=== PATIENT | female | born 1940 | race Caucasian/White ===

== ENCOUNTER 2017-11-16 14:10 | Inpatient (IN) | payer MEDICARE, OTHER ==
[~2017-11-16] VITALS: Ht 160 cm; Wt 43.5 kg
[~2017-11-16 14:10] MED LIST: ASPIR 8181 MG PO; AZITHROMYCIN500 MG PO; BISACODYL5 MG PO; BROVANA15 MCG/2 M INH; CITALOPRAM HBR10 MG PO; DIAZEPAM5 MG PO; DOCUSATE SODIU100 MG PO; FENTANYL1 EAC1 TD; FENTANYL1 EAC1 TOP; FENTANYL1 EACH TOP; FLOVENT HFA12 G1 INH; HYDROCODON-ACE1 EA11; HYDROCODON-ACE1 EA12 PO; LEVALBUTER1.25 MG/0. INH; LIDOCAINE700 MG TOP; MELOXICAM7.5 MG PO; NAPROXEN500 MG PO; NASONEX17 GM; PROAIR HFA INH8.5 GM INH; ZOLPIDEM TARTRAT5 MG PO
[2017-11-16] MEDS ORDERED: SODIUM CHLORIDE 0.9% 500ML 500 ML IV STA (14:19)
[2017-11-16] MEDS ORDERED: ENOXAPARIN INJ 80 MG/0.8 ML SYR SC STA (14:19)
[2017-11-16] MEDS ORDERED: ONDANSETRON HCL INJ 2 MG/ML VIAL IV PRN ×2 (14:30→16:00)
[2017-11-16] MEDS ORDERED: ASPIRIN 81 MG CHEW TAB PO ONE (14:30)
[2017-11-16] MEDS ORDERED: PROMETHAZINE 12.5MG/ NACL 0.9% 12.5 MG/50 ML BAG IV PRN (14:30)
[2017-11-16] MEDS ORDERED: NITROGLYCERIN 2% OINT 1 GM PKT TOP ONE (14:30)
[2017-11-16] MEDS ORDERED: FAMOTIDINE 20 MG/2 ML VIAL IV ONE (14:30)
[2017-11-16] MEDS ORDERED: LEVALBUTEROL HCL SOLN NEBU 1.25 MG/3 ML NEB INH ONE (14:45)
[2017-11-16] MEDS ORDERED: IPRATROPIUM BROMIDE 0.02% 2.5 ML NEB NEB ONE (14:45)
[2017-11-16 15:18] LABS: BASOPHILS # (AUTO) 0.1 (0.0-0.1); BASOPHILS % 0.3 % (0.0-1.0); EOSINOPHILS # (AUTO) 0.1 (0.0-0.4); EOSINOPHILS % 0.3 % (0.0-6.0); HEMATOCRIT 36.8 % (34.2-44.1); HEMOGLOBIN 12.1 g/dL (12.0-16.0); LYMPHOCYTES # (AUTO) 1.1 (1.0-3.2); LYMPHOCYTES % 3.6 % (18.0-39.1); MEAN CORPUSCULAR HEMOGLOBIN 29.4 pg (28-32); MEAN CORPUSCULAR HGB CONC 32.9 g/dL (31-35); MEAN CORPUSCULAR VOLUME 89.5 fL (81-99); MONOCYTES # (AUTO) 2.4 (0.2-0.8); MONOCYTES % 8.3 % (4.4-11.3); NEUTROPHILS # (AUTO) 25.4 (2.1-6.9); PLATELET COUNT 364 x10e3/uL (140-360); RED BLOOD COUNT 4.11 x10e6/uL (3.6-5.1); RED CELL DISTRIBUTION WIDTH 13.8 % (11.7-14.4)
[2017-11-16] MEDS: ALBUTEROL SULF 0.083% NEB SOLN 3 ML NEB NEB SCH ×3 (15:35→23:00)
[2017-11-16 15:36] LABS: ALANINE AMINOTRANSFERASE 17 IU/L (0-55); ALBUMIN 4.1 g/dL (3.5-5.0); ALKALINE PHOSPHATASE 91 IU/L (40-150); ANION GAP 19.6 mmol/L (8-16); BLOOD UREA NITROGEN 13 mg/dL (7-26); BUN/CREATININE RATIO 19 (6-25); CALCIUM 10.4 mg/dL (8.4-10.2); CARBON DIOXIDE 28 mmol/L (22-29); CHLORIDE 97 mmol/L (98-107); CREATINE KINASE 52 IU/L (29-168); CREATININE, SERUM 0.69 mg/dL (0.57-1.11); EST GLOMERULAR FILTRATION RATE > 60 ML/MIN (60-); GLUCOSE 102 mg/dL (74-118); MAGNESIUM 1.9 MG/DL (1.3-2.1); POTASSIUM 4.6 mmol/L (3.5-5.1); SODIUM 140 mmol/L (136-145)
--- NOTE | 2017-11-16 15:45 | Diagnostic Imaging Report ---
Examination: Single AP view of the chest. COMPARISON: Chest 2 views 04/09/2016 INDICATION: Generalized weakness, chest pain IMPRESSION: 1. Lines and Tubes: None 2. Lungs are hyperinflated. Stable mild prominence of the interstitial markings, likely reflecting chronic interstitial changes. Stable linear opacities in the left midlung consistent with scarring. Mild left basal atelectatic changes. No consolidation or effusion. 3. Cardiomediastinal silhouette is normal. Pulmonary vasculature is normal. 4. No acute bony abnormalities. Signed by: Dr. Billy Geller M.D. on 11/16/2017 3:41 PM
[2017-11-16] MEDS ORDERED: LACTATED RINGER'S 1,000 ML IV SCH (15:52)
[2017-11-16] MEDS ORDERED: DIPHENHYDRAMINE HCL 25 MG CAP PO PRN (16:00)
[2017-11-16] MEDS ORDERED: ENALAPRILAT IV INJ 1.25 MG/ML VIAL IV PRN (16:00)
[2017-11-16] MEDS ORDERED: ZOLPIDEM TARTRATE 5 MG TAB PO PRN ×2 (16:00→20:30)
[2017-11-16] MEDS ORDERED: IBUPROFEN 200 MG TAB PO PRN (16:00)
[2017-11-16] MEDS ORDERED: CLONIDINE HCL 0.1 MG TAB PO PRN (16:00)
[2017-11-16] MEDS ORDERED: LACTULOSE SYRUP 20 GM/30 ML UDC PO PRN (16:00)
[2017-11-16] MEDS ORDERED: IBUPROFEN 400 MG TAB PO PRN (16:30)
[2017-11-16] MEDS: FAMOTIDINE 20 MG TAB PO SCH (16:41)
[2017-11-16] MEDS: ENOXAPARIN SOD INJ 40 MG/0.4 ML SYR SC SCH (16:42)
[2017-11-16] MEDS: CEFTRIAXONE SOD 1 GM VIAL IV SCH (17:00)
[2017-11-16 17:01] LABS: CLARITY,URINE SL CLOUDY (CLEAR); COLOR,URINE YELLOW (YELLOW); KETONES,URINE 2+ (NEGATIVE); LEUKOCYTE ESTERASE ,URINE NEGATIVE (NEGATIVE); NITRITE,URINE NEGATIVE (NEGATIVE); PROTEIN,URINE DIPSTICK NEGATIVE (NEGATIVE); URINE UROBILINOGEN 0.2 mg/dL (0.2 - 1)
[2017-11-16 17:02] LABS: BACTERIA,URINE FEW /HPF; BILIRUBIN,URINE 1+ (NEGATIVE); EPITHELIAL CELLS,URINE FEW /LPF; MUCUS,URINE MANY (RARE); RBC,URINE 21-50 /HPF (0-5); TRANSITIONAL EPI CELLS,URINE FEW
[2017-11-16] MEDS: AZITHROMYCIN 500MG/NS 250 ML 250 ML IV SCH (17:23)
[2017-11-16] MEDS: SODIUM CHLORIDE 0.9% 1000ML 1,000 ML IV SCH (18:07)
[2017-11-16] MEDS: IBUPROFEN 400 MG TAB PO PRN (18:08)
[2017-11-16 18:15] LABS: LYMPHOCYTES % (MANUAL) 2 % (19-48); MONOCYTES % (MANUAL) 4 % (3.4-9.0); NEUTROPHILS % (MANUAL) 94 % (40-74)
[2017-11-16 18:16] LABS: PLATELET ESTIMATE ADEQUATE; PLATELET MORPHOLOGY COMMENT NORMAL; RBC MORPHOLOGY COMMENT NORMAL
[2017-11-16 18:17] VITALS: BP 120/60
[2017-11-16] MEDS: IPRATROPIUM BROMIDE 0.02% 2.5 ML NEB NEB SCH ×2 (19:55→23:56)
[2017-11-16 20:10] VITALS: BP 154/71
[2017-11-16] MEDS: CITALOPRAM HYDROBROMIDE 20 MG TAB PO SCH (20:32)
[2017-11-16 20:38] VITALS: BP 154/71
[2017-11-16] MEDS: HYDROCODONE/APAP 7.5MG-325MG 1 EA TAB PO PRN (21:03)
[2017-11-17 00:20] VITALS: BP 150/70
[2017-11-17] MEDS: ALBUTEROL SULF 0.083% NEB SOLN 3 ML NEB NEB SCH ×7 (03:00→23:00)
[2017-11-17] MEDS: HYDROCODONE/APAP 7.5MG-325MG 1 EA TAB PO PRN ×3 (04:25→21:30)
[2017-11-17] MEDS: IPRATROPIUM BROMIDE 0.02% 2.5 ML NEB NEB SCH ×3 (04:30→18:45)
[2017-11-17 04:51] LABS: CREATINE KINASE MB 4.1 ng/mL (0-5.0)
[2017-11-17] MEDS: CEFTRIAXONE SOD 1 GM VIAL IV SCH ×2 (05:09→16:00)
[2017-11-17] MEDS: SODIUM CHLORIDE 0.9% 1000ML 1,000 ML IV SCH (05:09)
[2017-11-17] MEDS: ACETAMINOPHEN 325 MG TAB PO PRN ×2 (06:00→08:36)
[2017-11-17] MEDS ORDERED: FENTANYL 50 MCG/HR PATCH TD SCH ×2 (07:15→09:00)
[2017-11-17] MEDS: FAMOTIDINE 20 MG TAB PO SCH ×2 (07:30→16:29)
[2017-11-17 08:00] VITALS: BP 175/71
[2017-11-17] MEDS: IBUPROFEN 400 MG TAB PO PRN (08:37)
[2017-11-17] MEDS: ARFORMOTEROL TARTRATE INH SCH ×2 (09:00→19:00)
[2017-11-17] MEDS ORDERED: NON-FORMULARY MEDICATION (Citalopram Hydrobromide (Citalopram Hbr) 10 MG) PO SCH (09:00)
[2017-11-17] MEDS: BISACODYL 5 MG TAB EC PO SCH (09:00)
[2017-11-17] MEDS: DOCUSATE SODIUM 100 MG CAP PO SCH ×2 (09:00→16:30)
[2017-11-17] MEDS: CITALOPRAM HYDROBROMIDE 20 MG TAB PO SCH (09:04)
[2017-11-17] MEDS: ASPIRIN 81 MG CHEW TAB PO SCH (09:04)
[2017-11-17] MEDS: LOSARTAN POTASSIUM 25 MG TAB PO SCH (10:00)
--- NOTE | 2017-11-17 10:35 | Consultation ---
DATE OF CONSULTATION: November 17, 2017 CARDIOLOGY CONSULTATION REASON FOR CONSULTATION: Ongoing cardiac care and also chest pain. HISTORY OF PRESENT ILLNESS: Ms. Diana is a 77-year-old female who is known to our practice, but has not been seen for a while, who states that she came into the ER yesterday with complaints of just generalized malaise, fatigue, low appetite, and also chest pain that is most pronounced on the right side of her chest. She states that this pain is constant and does worsen at times with deep inhalation. She has a pertinent past medical history of COPD, CAD with stents, lung CA, shortness of breath, and chronic fatigue. At this present time, she endorses this pain, and also shortness of breath. Denies any palpitations, fever, chills, dysuria, or any other problems. REVIEW OF SYSTEMS: Negative except as mentioned above. PAST MEDICAL HISTORY 1. Severe COPD. 2. Coronary artery disease, status post 4 stents in 2009 per patient reporting. 3. History of heavy tobacco use and quit in 2010. 4. History of lung cancer diagnosed in 2010 with subsequent radiation and also chemotherapy. 5. Chronic constipation. 6. Degenerative joint disease. 7. Anxiety. 8. Peripheral neuropathy. PAST SURGICAL HISTORY: Includes hysterectomy and coronary artery stent placement. FAMILY HISTORY: Noncontributory. SOCIAL HISTORY: Single. Has a daughter. Denies any current tobacco use or alcohol intake. PHYSICAL EXAMINATION VITAL SIGNS: Temperature 100.4, pulse 113, respiratory rate 18, blood pressure 175/71, oxygen saturation 99% on 2 L nasal cannula. GENERAL: Alert and oriented times 3. Resting comfortably in bed. Does not appear to be in acute distress at this time. LUNGS: Diminished breath sounds throughout. Scattered rhonchi and expiratory wheezes. CARDIOVASCULAR: Regular rate and rhythm. Systolic ejection murmur present, 2/6. ABDOMEN: Soft and nontender. Normoactive bowel sounds. EXTREMITIES: One plus pedal pulses. No edema. CARDIOVASCULAR MEDICATIONS: Aspirin 81 mg p.o. daily. LABS: WBC 29.25, hemoglobin 12.1, hematocrit 36.8, and platelets 364,000. Sodium 140, potassium 4.6, BUN 13, creatinine 0.69. Lactic acid 8.6. Magnesium 1.9. Calcium 10.4. Creatinine kinase 52, CK-MB 2.3. Troponin 0.014. BNP 56. Urine cultures pending. Chest x-ray with lungs are hyperinflated. Stable mild prominence of interstitial marking likely reflecting chronic interstitial changes. Stable linear opacities in the left midlung consistent with scarring. Mild left basilar atelectasis changes. No consolidation or effusion noted. Stable cardiac mediastinal silhouette. Telemetry is sinus rhythm. ASSESSMENT 1. Atypical chest pain. 2. Coronary artery disease: Status post stent placement in 2009. 3. Leukocytosis and afebrile. 4. Chronic obstructive pulmonary disease. 5. Malaise and fatigue. 6. Hypertension. RECOMMENDATIONS: Antimicrobial therapy per primary team. Adjust cardiac medications above and add beta eliana and ADENIKE inhibitor. We will order CT PE protocol to rule out PE. Continue to monitor on telemetry. Echocardiogram ordered. Awaiting completion. Plan for Lexiscan stress test in a week. Will monitor this patient very closely. Thank you, Dr. Parker, for this consultation. DICTATED BY MARSHALL GAR NP Job#: [id number] YULIA
[2017-11-17] MEDS ORDERED: SODIUM CHLORIDE 0.9% 50ML 50 ML ONE (11:48)
[2017-11-17] MEDS ORDERED: IOPAMIDOL 370 MG/ML 200 ML INFUS..BTL INJ ONE (11:48)
--- NOTE | 2017-11-17 12:07 | Diagnostic Imaging Report ---
EXAM: CT Chest WITH contrast 11/17/2017 9:30 AM INDICATION: Pneumonia. Sepsis. \S\possible PE Shortness of breath. Chest pressure. Weakness. Loss of appetite. History of lung cancer. COMPARISON: Chest x-ray 11/16/2017. TECHNIQUE: Chest was scanned utilizing a multidetector helical scanner from the lung apex through the level of the adrenal glands without administration of IV contrast. Coronal and sagittal reformations were obtained. Routine protocol was performed. IV CONTRAST: 100 mL of Isovue 370 COMPLICATIONS: None RADIATION DOSE: Total DLP: 315.45 mGy*cm Estimated effective dose: (DLP x 0.014 x size factor) mSv CTDIvol has been reviewed. It is below the limits set by the Radiation Protocol Committee (RPC). FINDINGS: LINES/ TUBES: None. LUNGS AND AIRWAYS: Severe centrilobular emphysematous changes. Diffuse interlobular septal thickening. * Right apical pleural parenchymal scarring with a more consolidative component measuring 14 mm (series 3 image 15). * 7.7 mm nodule in the anterior right upper lobe (image 32). * Ill-defined consolidation in the right upper lobe (image 48). * 6.3 mm nodule in the left upper lobe (image 16). * Ill-defined 15 mm consolidation in the left lower lobe laterally densities image 91). * Ill-defined consolidation scattered along the subpleural sparing of the left lower lobe (image 72). PLEURA: The pleural spaces are clear. HEART AND MEDIASTINUM: The thyroid gland is normal. No mediastinal or axillary lymphadenopathy. Single prominent 1.2 cm subcarinal lymph node. Multiple small bilateral hilar lymph nodes. The heart is normal in size. There is a small pericardial effusion. Mild diffuse esophageal wall thickening. There are significant atherosclerotic calcifications in the aorta and coronary arteries. LAD coronary artery stent. Possible left IJ thrombus. Multiple small left hilar lymph nodes resulting in architectural UPPER ABDOMEN: Severe atherosclerotic calcifications. Upper abdomen is otherwise unremarkable. BONES: There are degenerative changes in the thoracic spine. Severe degenerative changes of bilateral glenohumeral joints. SOFT TISSUES: Unremarkable. IMPRESSION: 1. Bilateral multifocal pneumonia predominantly in the right upper lobe superimposed on severe centrilobular emphysema. 2. No pulmonary embolism. 3. Possible left IJ thrombus. Recommend venous ultrasound. Signed by: Dr. Jesus Segura M.D. on 11/17/2017 12:03 PM
[2017-11-17 12:19] VITALS: BP 142/61
[2017-11-17 15:52] VITALS: BP 98/58
[2017-11-17] MEDS: AZITHROMYCIN 500MG/NS 250 ML 250 ML IV SCH (16:00)
[2017-11-17] MEDS: METOPROLOL TARTRATE 25 MG TAB PO SCH (16:29)
[2017-11-17] MEDS: ENOXAPARIN SOD INJ 40 MG/0.4 ML SYR SC SCH ×2 (16:29→16:41)
[2017-11-17 20:00] VITALS: BP 146/66
[2017-11-17 20:18] VITALS: BP 146/66
[2017-11-18] VITALS (7 sets, daily range): BP systolic 94–143; BP diastolic 61–68
[2017-11-18] MEDS: SODIUM CHLORIDE 0.9% 1000ML 1,000 ML IV SCH (00:51)
[2017-11-18] MEDS: IPRATROPIUM BROMIDE 0.02% 2.5 ML NEB NEB SCH ×4 (01:00→19:00)
[2017-11-18] MEDS: ALBUTEROL SULF 0.083% NEB SOLN 3 ML NEB NEB SCH ×6 (03:00→23:00)
[2017-11-18] MEDS: CEFTRIAXONE SOD 1 GM VIAL IV SCH (03:37)
[2017-11-18] MEDS: HYDROCODONE/APAP 7.5MG-325MG 1 EA TAB PO PRN ×3 (05:17→21:33)
[2017-11-18] MEDS: ARFORMOTEROL TARTRATE INH SCH (07:00)
[2017-11-18 08:02] LABS: BASOPHILS # (AUTO) 0.1 (0.0-0.1); BASOPHILS % 0.3 % (0.0-1.0); EOSINOPHILS # (AUTO) 0.2 (0.0-0.4); EOSINOPHILS % 0.5 % (0.0-6.0); HEMATOCRIT 29.6 % (34.2-44.1); HEMOGLOBIN 9.3 g/dL (12.0-16.0); LYMPHOCYTES # (AUTO) 1.3 (1.0-3.2); LYMPHOCYTES % 4.3 % (18.0-39.1); MEAN CORPUSCULAR HEMOGLOBIN 29.2 pg (28-32); MEAN CORPUSCULAR HGB CONC 31.4 g/dL (31-35); MEAN CORPUSCULAR VOLUME 93.1 fL (81-99); MONOCYTES # (AUTO) 2.6 (0.2-0.8); MONOCYTES % 8.6 % (4.4-11.3); NEUTROPHILS # (AUTO) 25.2 (2.1-6.9); NEUTROPHILS % 84.8 % (38.7-80.0); PLATELET COUNT 259 x10e3/uL (140-360); RED BLOOD COUNT 3.18 x10e6/uL (3.6-5.1); RED CELL DISTRIBUTION WIDTH 13.5 % (11.7-14.4)
[2017-11-18 08:18] LABS: ANION GAP 14.6 mmol/L (8-16); BLOOD UREA NITROGEN 9 mg/dL (7-26); BUN/CREATININE RATIO 15 (6-25); CALCIUM 9.1 mg/dL (8.4-10.2); CARBON DIOXIDE 28 mmol/L (22-29); CHLORIDE 100 mmol/L (98-107); CREATININE, SERUM 0.59 mg/dL (0.57-1.11); EST GLOMERULAR FILTRATION RATE > 60 ML/MIN (60-); GLUCOSE 96 mg/dL (74-118); POTASSIUM 4.6 mmol/L (3.5-5.1); SODIUM 138 mmol/L (136-145)
[2017-11-18] MEDS: ASPIRIN 81 MG CHEW TAB PO SCH (08:55)
[2017-11-18] MEDS: CITALOPRAM HYDROBROMIDE 20 MG TAB PO SCH (08:55)
[2017-11-18] MEDS: DOCUSATE SODIUM 100 MG CAP PO SCH ×2 (08:55→17:38)
[2017-11-18] MEDS: FAMOTIDINE 20 MG TAB PO SCH ×2 (08:55→17:38)
[2017-11-18] MEDS: BISACODYL 5 MG TAB EC PO SCH (08:55)
[2017-11-18] MEDS: METOPROLOL TARTRATE 25 MG TAB PO SCH ×2 (08:56→17:38)
[2017-11-18] MEDS: LOSARTAN POTASSIUM 25 MG TAB PO SCH (09:00)
[2017-11-18 09:54] LABS: BAND NEUTROPHILS % (MANUAL) 1 %; LYMPHOCYTES % (MANUAL) 4 % (19-48); MONOCYTES % (MANUAL) 2 % (3.4-9.0); NEUTROPHILS % (MANUAL) 88 % (40-74); PROMYELOCYTES % (MANUAL) 2 % (0-0)
[2017-11-18 09:55] LABS: ANISOCYTOSIS SLIGHT; HYPOCHROMASIA SLIGHT; PLATELET ESTIMATE ADEQUATE; PLATELET MORPHOLOGY COMMENT NORMAL; RBC MORPHOLOGY COMMENT NORMAL
[2017-11-18] MEDS: VANCOMYCIN 1GM/NS 250 ML 250 ML IV SCH ×2 (10:35→21:05)
[2017-11-18] MEDS: CEFEPIME HCL 1 GM VIAL IV SCH ×2 (10:35→21:05)
[2017-11-18] MEDS: ACETAMINOPHEN 325 MG TAB PO PRN (12:51)
[2017-11-18] MEDS: FENTANYL 50 MCG/HR PATCH TOP SCH (13:01)
[2017-11-18] MEDS: ENOXAPARIN SOD INJ 40 MG/0.4 ML SYR SC SCH (17:38)
[2017-11-19] VITALS (8 sets, daily range): BP systolic 112–193; BP diastolic 61–83
[2017-11-19] MEDS: IPRATROPIUM BROMIDE 0.02% 2.5 ML NEB NEB SCH ×4 (03:50→19:00)
[2017-11-19] MEDS: ALBUTEROL SULF 0.083% NEB SOLN 3 ML NEB NEB SCH ×6 (03:50→23:00)
[2017-11-19 04:31] LABS: BASOPHILS # (AUTO) 0.1 (0.0-0.1); BASOPHILS % 0.3 % (0.0-1.0); EOSINOPHILS # (AUTO) 0.4 (0.0-0.4); EOSINOPHILS % 1.9 % (0.0-6.0); HEMATOCRIT 30.5 % (34.2-44.1); HEMOGLOBIN 9.5 g/dL (12.0-16.0); LYMPHOCYTES # (AUTO) 1.3 (1.0-3.2); LYMPHOCYTES % 6.1 % (18.0-39.1); MEAN CORPUSCULAR HEMOGLOBIN 29.1 pg (28-32); MEAN CORPUSCULAR HGB CONC 31.1 g/dL (31-35); MEAN CORPUSCULAR VOLUME 93.6 fL (81-99); MONOCYTES # (AUTO) 1.9 (0.2-0.8); MONOCYTES % 9.2 % (4.4-11.3); NEUTROPHILS # (AUTO) 17.1 (2.1-6.9); NEUTROPHILS % 81.2 % (38.7-80.0); PLATELET COUNT 281 x10e3/uL (140-360); RED BLOOD COUNT 3.26 x10e6/uL (3.6-5.1); RED CELL DISTRIBUTION WIDTH 13.6 % (11.7-14.4)
[2017-11-19 04:48] LABS: ANION GAP 12.7 mmol/L (8-16); BLOOD UREA NITROGEN 10 mg/dL (7-26); BUN/CREATININE RATIO 17 (6-25); CALCIUM 9.3 mg/dL (8.4-10.2); CARBON DIOXIDE 30 mmol/L (22-29); CHLORIDE 99 mmol/L (98-107); CREATININE, SERUM 0.59 mg/dL (0.57-1.11); EST GLOMERULAR FILTRATION RATE > 60 ML/MIN (60-); GLUCOSE 105 mg/dL (74-118); POTASSIUM 3.7 mmol/L (3.5-5.1); SODIUM 138 mmol/L (136-145)
[2017-11-19] MEDS: HYDROCODONE/APAP 7.5MG-325MG 1 EA TAB PO PRN ×2 (05:53→17:28)
[2017-11-19] MEDS: ASPIRIN 81 MG CHEW TAB PO SCH (07:49)
[2017-11-19] MEDS: DIAZEPAM 5 MG TAB PO PRN ×2 (08:12→21:15)
[2017-11-19] MEDS: METOPROLOL TARTRATE 25 MG TAB PO SCH ×2 (09:30→16:45)
[2017-11-19] MEDS: VENLAFAXINE HCL 75 MG CAPCR PO SCH (09:30)
[2017-11-19] MEDS: BISACODYL 5 MG TAB EC PO SCH (09:30)
[2017-11-19] MEDS: FAMOTIDINE 20 MG TAB PO SCH ×2 (09:30→16:45)
[2017-11-19] MEDS ORDERED: METHYLPREDNISOLONE SOD SUCC 125 MG/2ML VIAL IV ONE (09:30)
[2017-11-19] MEDS: DOCUSATE SODIUM 100 MG CAP PO SCH ×2 (09:30→16:45)
[2017-11-19] MEDS: METHYLPREDNISOLONE SOD SUCC 40 MG/ML VIAL IV SCH ×2 (14:00→21:15)
--- NOTE | 2017-11-19 14:53 | Diagnostic Imaging Report ---
PROCEDURE: A single AP view of the chest. COMPARISON: [facility], CT, CT CHEST W, 11/17/2017, 11:07. INDICATIONS: PNEUMONIA FINDINGS: Lines/tubes: None. Lungs: COPD changes. Airspace opacity in the right upper lobe, similar to prior CT. Focal atelectatic changes projecting in the left lateral costophrenic area. Rest of the lungs is clear. Pleura: There is no pleural effusion or pneumothorax. Heart and mediastinum: Cardiac silhouette is unremarkable. Pulmonary vasculature is normal. Bones: No acute bony abnormality. IMPRESSION: 1. findings consistent with right upper lobe pneumonia. No significant interval change since the prior exam. Billy Geller M.D. Dictated by: Billy Geller M.D. on 11/19/2017 at 12:45 Electronically approved by: Billy Geller M.D. on 11/19/2017 at 12:45
--- NOTE | 2017-11-19 14:54 | Diagnostic Imaging Report ---
PROCEDURE: A single AP view of the chest. COMPARISON: [facility], CT, CT CHEST W, 11/17/2017, 11:07. Patients [facility], DX, CHEST SINGLE (PORTABLE), 11/19/2017, 11:51. INDICATIONS: PNEUMONIA FINDINGS: See impression. IMPRESSION: 1. interval placement of right-sided PICC line, with distal tip projecting at the proximal SVC. 2. Linear subsegmental atelectasis in the left midlung. 3. Otherwise, no interval change in right upper lobe airspace opacity consistent with pneumonia. Billy Geller M.D. Dictated by: Billy Geller M.D. on 11/19/2017 at 14:16 Electronically approved by: Billy Geller M.D. on 11/19/2017 at 14:16
[2017-11-19] MEDS: VANCOMYCIN 1GM/NS 250 ML 250 ML IV SCH (15:18)
[2017-11-19] MEDS: CEFEPIME HCL 1 GM VIAL IV SCH (15:18)
[2017-11-19] MEDS ORDERED: METHYLPREDNISOLONE SOD SUCC 125 MG/2ML VIAL IV NR (15:30)
[2017-11-19] MEDS: LOSARTAN POTASSIUM 25 MG TAB PO SCH (16:45)
[2017-11-19] MEDS: ENOXAPARIN SOD INJ 40 MG/0.4 ML SYR SC SCH (16:45)
[2017-11-20] VITALS: BP 133/60
[2017-11-20] MEDS: IPRATROPIUM BROMIDE 0.02% 2.5 ML NEB NEB SCH ×3 (01:00→13:00)
[2017-11-20] MEDS: VANCOMYCIN 1GM/NS 250 ML 250 ML IV SCH ×2 (02:28→15:14)
[2017-11-20] MEDS: CEFEPIME HCL 1 GM VIAL IV SCH ×2 (02:28→15:14)
[2017-11-20] MEDS: ALBUTEROL SULF 0.083% NEB SOLN 3 ML NEB NEB SCH ×4 (03:00→15:00)
[2017-11-20 04:00] VITALS: BP 148/88
[2017-11-20] MEDS: METHYLPREDNISOLONE SOD SUCC 40 MG/ML VIAL IV SCH ×2 (05:40→14:17)
[2017-11-20 05:51] LABS: BASOPHILS % 0.1 % (0.0-1.0); HEMATOCRIT 28.1 % (34.2-44.1); HEMOGLOBIN 8.8 g/dL (12.0-16.0); LYMPHOCYTES # (AUTO) 0.4 (1.0-3.2); LYMPHOCYTES % 3.6 % (18.0-39.1); MEAN CORPUSCULAR HEMOGLOBIN 28.4 pg (28-32); MEAN CORPUSCULAR HGB CONC 31.3 g/dL (31-35); MEAN CORPUSCULAR VOLUME 90.6 fL (81-99); MONOCYTES # (AUTO) 0.5 (0.2-0.8); MONOCYTES % 4.7 % (4.4-11.3); NEUTROPHILS # (AUTO) 9.1 (2.1-6.9); NEUTROPHILS % 90.9 % (38.7-80.0); PLATELET COUNT 312 x10e3/uL (140-360); RED CELL DISTRIBUTION WIDTH 13.4 % (11.7-14.4)
[2017-11-20 06:12] LABS: ANION GAP 11.7 mmol/L (8-16); BLOOD UREA NITROGEN 15 mg/dL (7-26); BUN/CREATININE RATIO 26 (6-25); CALCIUM 9.2 mg/dL (8.4-10.2); CARBON DIOXIDE 35 mmol/L (22-29); CHLORIDE 97 mmol/L (98-107); CREATININE, SERUM 0.58 mg/dL (0.57-1.11); EST GLOMERULAR FILTRATION RATE > 60 ML/MIN (60-); GLUCOSE 234 mg/dL (74-118); POTASSIUM 3.7 mmol/L (3.5-5.1); SODIUM 140 mmol/L (136-145)
[2017-11-20] MEDS: ARFORMOTEROL TARTRATE INH SCH ×2 (07:00→19:00)
[2017-11-20 07:45] VITALS: BP 136/69
[2017-11-20] MEDS: FAMOTIDINE 20 MG TAB PO SCH ×2 (08:42→16:55)
[2017-11-20] MEDS: ASPIRIN 81 MG CHEW TAB PO SCH (08:42)
[2017-11-20] MEDS: DOCUSATE SODIUM 100 MG CAP PO SCH ×2 (08:42→16:55)
[2017-11-20] MEDS: LOSARTAN POTASSIUM 25 MG TAB PO SCH (08:43)
[2017-11-20] MEDS: VENLAFAXINE HCL 75 MG CAPCR PO SCH (08:43)
[2017-11-20] MEDS: BISACODYL 5 MG TAB EC PO SCH (08:43)
[2017-11-20] MEDS: METOPROLOL TARTRATE 25 MG TAB PO SCH ×2 (08:44→16:56)
[2017-11-20 09:00] VITALS: BP 136/69
[2017-11-20] MEDS ORDERED: MUPIROCIN 2% OINT 22 GM TUBE TOP SCH (09:00)
--- NOTE | 2017-11-20 11:00 | Discharge Summary ---
ADMITTING DIAGNOSES 1. Acute respiratory failure. 2. Chronic obstructive pulmonary disease exacerbation. 3. Severe chronic obstructive pulmonary disease. 4. Bilateral pneumonia. 5. Coronary artery disease. 6. History of lung cancer (in remission). 7. Previous heavy tobacco smoker. 8. Sepsis secondary to bilateral pneumonia. DISCHARGE DIAGNOSES 1. Sepsis secondary to right upper lobe pneumonia, resolving. 2. Right upper lobe pneumonia, likely gram-negative katya. 3. Acute respiratory failure, resolved. 4. Severe chronic obstructive pulmonary disease. 5. Chronic obstructive pulmonary disease exacerbation, resolving. 6. Coronary artery disease (history of previous coronary stent placement). 7. History of lung cancer (in remission). 8. Previous heavy tobacco smoker. 9. Underweight. Body mass index 17. HOSPITAL COURSE: This is a 77-year-old white woman who was initially admitted to [facility] with a diagnosis of sepsis secondary to bilateral pneumonia and acute respiratory failure. The patient's acute respiratory failure resolved with supplemental oxygen, nebulized bronchodilators and intravenous methylprednisolone. The patient was also diagnosed with COPD exacerbation on admission, which also improved with intravenous methylprednisolone, nebulized bronchodilators and supplemental oxygen. The patient's sepsis improved with intravenous vancomycin and cefepime. The patient underwent serial cardiac enzymes as well as electrocardiograms, which did not reveal any evidence of acute myocardial ischemia or infarction. On admission, the patient was found to have B-type natriuretic peptide level of 56, which is within normal limits. During this hospitalization, the patient did declare herself do not resuscitate code status. During his hospital stay, the patient's white blood cell count got as high as 29,700 with 88% segmented neutrophils and 1% bands. On the day of discharge, the patient's white blood cell count was 10,000 with 98% segmented neutrophils. During this hospitalization, the decision was made to transfer the patient to a long-term acute care facility, namely [facility], where she can receive continued intravenous antibiotics for her right upper lobe pneumonia as well as intravenous methylprednisolone and scheduled nebulized bronchodilators for her COPD exacerbation. Also at this facility, the patient can receive daily physician visits to help manage her multiple medical comorbidities. The patient's condition on discharge was stable with overall fair prognosis. DISCHARGE MEDICATIONS 1. Metoprolol tartrate 25 mg p.o. b.i.d. 2. Venlafaxine 75 mg extended release p.o. daily. 3. Losartan 25 mg daily. 4. Bisacodyl 5 mg daily. 5. Colace 100 mg b.i.d. 6. Aspirin 81 mg daily. 7. Famotidine 20 mg p.o. b.i.d. 8. Methylprednisolone 40 mg intravenously every 8 hours. 9. Zolpidem 5 mg nightly p.r.n. insomnia. 10. Cefepime 1 g intravenously every 12 hours. 11. Vancomycin 1 g intravenously every 12 hours. 12. Diazepam 5 mg b.i.d. p.r.n. anxiety. 13. [place] 7.5 per 325 one every 6 hours p.r.n. pain. 14. Fentanyl patch 50 mcg an hour, 1 patch every 48 hours. 15. Tylenol 650 p.o. q.6 h. p.r.n. fever or pain. 16. Ibuprofen 400 mg p.o. q.6 h. 17. Brovana nebulizer treatments twice a day. 18. Ipratropium nebulizer treatments every 6 hours. 19. Albuterol nebulizer treatments every 4 hours. 20. Enoxaparin 30 mg subcutaneous daily. 21. Clonidine 0.1 mg t.i.d. p.r.n. elevated blood pressure. 22. Ondansetron 4 mg intravenously every 4 hours p.r.n. nausea and vomiting. 23. Enalapril 0.625 mg intravenously every 6 hours p.r.n. elevated blood pressure. 24. Lactulose 20 g p.o. b.i.d. p.r.n. constipation. 25. Diphenhydramine 25 mg p.o. q.6 h. p.r.n. itching. FOLLOWUP INSTRUCTIONS: As previously stated, the patient will transfer to a local long-term acute care facility, namely [facility], where she will be under the care of her attending, namely myself, Dr. Adrian Almodovar. ADRIAN ALMODOVAR MD Job#: [id number] cc:SCOT GLASS MD
[2017-11-20 12:05] VITALS: BP 164/75
[2017-11-20] MEDS: FENTANYL 50 MCG/HR PATCH TOP SCH (14:17)
[2017-11-20 16:15] VITALS: BP 169/79
[2017-11-20] MEDS ORDERED: ENOXAPARIN 30 MG/0.3 ML SYR SC SCH (17:00)
[2017-11-20] MEDS ORDERED: ENOXAPARIN SOD INJ 40 MG/0.4 ML SYR SC SCH (17:00)
== END 2017-11-20 19:13 | DRG 871 ==
LOC: ER 14:10 → ERHOLD 17:19 → MED/SURG2 17:59
PROVIDERS: ADMIT Internal Medicine; ATTEND Internal Medicine
PROC: 02HV33Z Insertion of Infusion Device into Superior Vena Cava, Percutaneous Approach (ICD-10-PCS; principal; 2017-11-16)
DX: A41.9 Sepsis, unspecified organism (principal); J96.00 Acute respiratory failure, unspecified whether with hypoxia or hypercapnia; I50.23 Acute on chronic systolic (congestive) heart failure; J15.6 Pneumonia due to other Gram-negative bacteria; C34.90 Malignant neoplasm of unspecified part of unspecified bronchus or lung; J44.1 Chronic obstructive pulmonary disease with (acute) exacerbation; J44.0 Chronic obstructive pulmonary disease with (acute) lower respiratory infection; Z68.1 Body mass index [BMI] 19.9 or less, adult; R65.20 Severe sepsis without septic shock; I25.10 Atherosclerotic heart disease of native coronary artery without angina pectoris; I11.0 Hypertensive heart disease with heart failure; E11.42 Type 2 diabetes mellitus with diabetic polyneuropathy; E86.0 Dehydration; Z79.4 Long term (current) use of insulin; Z95.5 Presence of coronary angioplasty implant and graft; F03.90 Unspecified dementia, unspecified severity, without behavioral disturbance, psychotic disturbance, mood disturbance, and anxiety; R63.6 Underweight; Z66 Do not resuscitate; Z87.891 Personal history of nicotine dependence; M19.90 Unspecified osteoarthritis, unspecified site
CPT/HCPCS: 36415; 36569; 71045; 71260; 80048; 80053; 80202; 81001; 82550; 82553; 83605; 83735; 83880; 84484; 85025; 87040; 87086; 93005; 93306; 94640; 99284; J0456; J0692; J0696; J1650; J2405; J2920; J2930; J3370; J7030; J7040; Q9967